=== PATIENT | male | born 1965 | race Caucasian/White ===

== ENCOUNTER → 2016-10-27 | Day surgery (SDC) | payer BC ==
[~2016-10-27] MED LIST: CLARITIN D PO
--- NOTE | ~2016-10-27 | OR ---
Unit #: [id number] #: [id number] Patient: LISA ADAMS [id number] [address] [place], [place] [address] [id number] MR#: [id number] NAME: LISA ADAMS ROOM: Date of Procedure: 10/27/2016 Admission Date: 10/27/2016 Surgeon: Troy Garcia M.D. : 1965 Attending Physician: Troy Garcia M.D. Primary Care Physician: Ellie Tom M.D. OPERATIVE REPORT PREOPERATIVE DIAGNOSIS Colorectal cancer screening in an average-risk patient. PROCEDURES PERFORMED Colonoscopy and polypectomy. POSTOPERATIVE DIAGNOSES 1. Single sessile polyp in the proximal descending colon. This was about 7 mm in size. It was removed using snare polypectomy. 2. Small internal hemorrhoids. 3. Rest of examination up to cecum was normal. The quality of the prep was excellent. RECOMMENDATIONS 1. Follow up results of polyp histology. 2. Repeat colonoscopy in 5 years. SEDATION USED MAC. DESCRIPTION OF PROCEDURE Following detailed explanation of the potential risks and complications of a colonoscopy, namely perforation, bleeding, and complications related to sedation, the patient was brought to GI lab and laid in the left lateral decubitus position. A digital rectal examination was performed, which was normal. Lubricated tip of the Olympus video colonoscope was inserted through the anus and advanced under direct vision. The scope was advanced and passed up to sigmoid into descending colon. No diverticula were seen in this area. The scope tip was then navigated all the way up to cecum with visualization of the ileocecal valve and the appendiceal orifice. Preparation was excellent with good visualization and photodocumentation was obtained. Last several inches of terminal ileum also visualized after intubation of the ileocecal valve and appeared normal. Successive segments of the colonic mucosa were examined upon withdrawal. A single sessile polyp was noted in the proximal descending colon. The latter was about 7 mm in size. It was sessile and was removed using snare polypectomy. The polyp was retrieved and sent for histology. No additional polyps noted. Photodocumentation was obtained. The patient did not have any diverticulosis; however, small internal hemorrhoids were seen at the anal verge seen on retroflexion. The scope was then withdrawn. The patient returned to the recovery area. He tolerated the procedure without any postprocedure complications. Unit #: [id number] #: [id number] Patient: LISA ADAMS Daya by..Linsey Wolfe/ronel TD: 10/27/2016 22:24 JOB #: [id number] OPERATIVE REPORT Page 1 of 1 X Troy Garcia MD X PROCEDURE OPERATIVE NOTE
== END | disposition home or self-care (01) ==
LOC: COPS 07:40
PROVIDERS: Internal Medicine Gastroenterology
PROC: 0DBM8ZX Excision of Descending Colon, Via Natural or Artificial Opening Endoscopic, Diagnostic (ICD-10-PCS; principal; 2016-10-27 09:00)
DX: Z12.11 Encounter for screening for malignant neoplasm of colon (principal); K63.5 Polyp of colon; K64.8 Other hemorrhoids; Z79.899 Other long term (current) drug therapy; J30.2 Other seasonal allergic rhinitis; Z98.890 Other specified postprocedural states
CPT/HCPCS: 88305